=== PATIENT | male | born 1940 | race Caucasian/White ===

== ENCOUNTER 2020-04-20 09:16 | Inpatient (IN) ==
[2020-04-20 09:41] LABS: Basophils % 0.1 %; Eosinophils % 0.3 %; Hematocrit 33.9 % (37.5-50.1); Immature Granulocytes % 0.4 % (0-4); Lymphocytes % 14.8 %; Mean Corpuscular HGB Conc 32.4 g/dL (31.6-35.5); Mean Corpuscular Hemoglobin 31.5 pg (28.0-33.3); Mean Corpuscular Volume 97.1 fL (83.0-100.0); Mean Platelet Volume 10.8 fL (9.4-12.4); Monocytes # 0.6 K/mcL (0.0-1.3); Monocytes % 9.1 %; Platelet Count 227 K/mcL (140-400); Red Blood Count 3.49 M/mcL (4.19-5.50); Segmented Neutrophils % 75.3 %; White Blood Count 6.7 K/mcL (4.3-11.1)
[2020-04-20 09:56] LABS: Activated Partial Thrombo Time 32.5 Seconds (26.0-36.0); Alanine Aminotransferase 27 Units/L (7-52); Albumin/Globulin Ratio 1.4 (1.1-2.2); Alkaline Phosphatase 69 Units/L (34-104); Aspartate Amino Transferase 30 Units/L (13-39); BUN/Creatinine Ratio 22 (6-26); Bilirubin,Direct 0.2 mg/dL (0.0-0.2); Bilirubin,Indirect 0.6 mg/dL (0.0-1.0); Bilirubin,Total 0.8 mg/dL (0.3-1.0); Blood Urea Nitrogen 25 mg/dL (8-23); Calcium 9.1 mg/dL (8.6-10.3); Carbon Dioxide 23 mEq/L (23-29); Chloride 106 mEq/L (98-107); Globulin 2.9 g/dL (2.4-3.5); Glucose 128 mg/dL (70-105); INR 1.4; Osmolality,Calculated 294 (280-300); Potassium 4.2 mEq/L (3.5-5.1); Prothrombin Time 16.4 Seconds (9.4-12.1); Sodium 139 mEq/L (136-145); Total Protein 6.9 g/dL (6.4-8.9); eGFR For African Americans > 60 (> 60); eGFR For Non-African Americans > 60 (> 60)
[2020-04-20 10:06] LABS: Troponin I 0.05 ng/mL (< 0.04)
[2020-04-20] MEDS ORDERED: Furosemide 40 MG/4 ML VIAL IVP ONE (10:13)
[2020-04-20] MEDS ORDERED: Aspirin 325 MG TABLET PO ONE (10:13)
[2020-04-20] MEDS ORDERED: *HR* Labetalol 20 MG/4 ML SYRINGE IVP ONE (10:19)
[2020-04-20] MEDS ORDERED: Ondansetron 4 MG/2 ML VIAL IVP PRN (10:45)
[2020-04-20] MEDS ORDERED: Acetaminophen 325 MG TABLET PO PRN (10:45)
[2020-04-20] MEDS ORDERED: Naloxone 0.4 MG/ML INJ IVP PRN (10:45)
[2020-04-20] MEDS ORDERED: Nitroglycerin 0.4 MG TAB.SUBL SL PRN (10:48)
[2020-04-20] MEDS ORDERED: Perflutren Lipid Microsphere 1.3 ML in 0.9 % Sodium Chloride 8.7 ML IVP PRN (10:50)
[2020-04-20] MEDS ORDERED: Ipratropium/Albuterol Neb 3 ML IH SCH (12:00)
[2020-04-20] MEDS ORDERED: Ipratropium/Albuterol Neb 3 ML IH PRN (12:30)
[2020-04-20] MEDS: Furosemide 20 MG/2 ML VIAL IVP SCH (22:12)
[2020-04-21] MEDS: Melatonin 3 MG TABLET PO PRN ×2 (00:24→22:34)
[2020-04-21] MEDS: *HR* Enoxaparin 40 MG/0.4 ML SYRINGE SQ SCH (06:14)
[2020-04-21 06:39] LABS: Hematocrit 35.6 % (37.5-50.1); Hemoglobin 11.4 g/dL (12.9-16.9); Mean Corpuscular Hemoglobin 30.9 pg (28.0-33.3); Mean Corpuscular Volume 96.5 fL (83.0-100.0); Mean Platelet Volume 10.2 fL (9.4-12.4); Platelet Count 211 K/mcL (140-400); Red Blood Count 3.69 M/mcL (4.19-5.50); Red Cell Distribution Width 16.1 % (11.5-14.5); White Blood Count 6.5 K/mcL (4.3-11.1)
[2020-04-21 08:00] LABS: Magnesium 2.1 mg/dL (1.6-2.6); Potassium 4.3 mEq/L (3.5-5.1)
[2020-04-21] MEDS: Furosemide 20 MG/2 ML VIAL IVP SCH (08:49)
[2020-04-21] MEDS: Aspirin Enteric Coated 81 MG Tablet PO SCH (08:50)
[2020-04-22] MEDS: *HR* Enoxaparin 40 MG/0.4 ML SYRINGE SQ SCH (05:40)
[2020-04-22 06:53] LABS: Hematocrit 37.3 % (37.5-50.1); Hemoglobin 11.7 g/dL (12.9-16.9); Mean Corpuscular HGB Conc 31.4 g/dL (31.6-35.5); Mean Corpuscular Hemoglobin 31.3 pg (28.0-33.3); Mean Corpuscular Volume 99.7 fL (83.0-100.0); Mean Platelet Volume 11.7 fL (9.4-12.4); Platelet Count 212 K/mcL (140-400); Red Blood Count 3.74 M/mcL (4.19-5.50); Red Cell Distribution Width 16.9 % (11.5-14.5); White Blood Count 8.8 K/mcL (4.3-11.1)
[2020-04-22 07:16] LABS: Potassium 4.7 mEq/L (3.5-5.1)
[2020-04-22] MEDS ORDERED: Furosemide 20 MG/2 ML VIAL IVP SCH (09:00)
[2020-04-22] MEDS: lisinopriL 5 MG TABLET PO SCH (09:56)
[2020-04-22] MEDS: Spironolactone 25 MG TABLET PO SCH (09:56)
[2020-04-22] MEDS: Aspirin Enteric Coated 81 MG Tablet PO SCH (10:12)
[2020-04-22] MEDS: Melatonin 3 MG TABLET PO PRN (22:01)
[2020-04-23] MEDS: *HR* Enoxaparin 40 MG/0.4 ML SYRINGE SQ SCH (05:05)
[2020-04-23 07:31] LABS: Basophils % 0.1 %; Eosinophils % 0.2 %; Hematocrit 36.9 % (37.5-50.1); Hemoglobin 12.1 g/dL (12.9-16.9); Immature Granulocytes % 0.5 % (0-4); Mean Corpuscular HGB Conc 32.8 g/dL (31.6-35.5); Mean Corpuscular Hemoglobin 31.7 pg (28.0-33.3); Mean Corpuscular Volume 96.6 fL (83.0-100.0); Monocytes # 0.9 K/mcL (0.0-1.3); Monocytes % 9.5 %; Neutrophils # 7.6 K/mcL (1.6-8.9); Platelet Count 172 K/mcL (140-400); Red Blood Count 3.82 M/mcL (4.19-5.50); Red Cell Distribution Width 17.2 % (11.5-14.5); Segmented Neutrophils % 79.7 %; White Blood Count 9.6 K/mcL (4.3-11.1)
[2020-04-23 07:37] LABS: Calcium 8.7 mg/dL (8.6-10.3); Potassium 4.7 mEq/L (3.5-5.1)
[2020-04-23] MEDS: Spironolactone 25 MG TABLET PO SCH (09:23)
[2020-04-23] MEDS: Aspirin Enteric Coated 81 MG Tablet PO SCH (09:23)
[2020-04-23] MEDS: Furosemide 20 MG TABLET PO SCH (09:24)
[2020-04-23] MEDS: lisinopriL 5 MG TABLET PO SCH (09:24)
[2020-04-23] MEDS: Melatonin 3 MG TABLET PO PRN (21:09)
[2020-04-24] MEDS: *HR* Enoxaparin 40 MG/0.4 ML SYRINGE SQ SCH (06:08)
[2020-04-24] MEDS: lisinopriL 5 MG TABLET PO SCH (08:13)
[2020-04-24] MEDS: Aspirin Enteric Coated 81 MG Tablet PO SCH (08:13)
[2020-04-24] MEDS: Spironolactone 25 MG TABLET PO SCH (08:15)
[2020-04-24] MEDS: Furosemide 20 MG TABLET PO SCH (08:15)
[2020-04-24 10:53] VITALS: BP 122/67
== END 2020-04-24 11:00 | DRG 291 ==
LOC: EMEROOPIK 09:16 → INPPIK 09:16
PROVIDERS: ADMIT Family Medicine; ATTEND Family Medicine

== ENCOUNTER 2020-07-16 12:07 | Observation (INO) ==
[2020-07-16 12:58] LABS: Bilirubin,Urine Negative (Negative); Blood,Urine Moderate (Negative); Clarity,Urine Clear (Clear); Color,Urine Orange (Yellow); Glucose,Urine (UA) 100 mg/dL (Normal); Ketones,Urine Negative (Negative); Leukocyte Esterase,Urine Small (Negative); Nitrite,Urine Positive (Negative); Protein,Urine 100 mg/dL (Neg-Trace); Specific Gravity,Urine 1.025 (1.010-1.025); Urobilinogen,Urine Normal (Normal)
[2020-07-16 13:06] LABS: Bacteria,Urine Many per hpf (None-Few); WBC,Urine TNTC per hpf (0-3)
[2020-07-16 13:11] LABS: Basophils % 0.3 %; Eosinophils # 0.1 K/mcL (0.0-0.6); Eosinophils % 1.3 %; Hematocrit 37.6 % (37.5-50.1); Hemoglobin 12.1 g/dL (12.9-16.9); Immature Granulocytes % 0.5 % (0-4); Lymphocytes % 15.3 %; Mean Corpuscular HGB Conc 32.2 g/dL (31.6-35.5); Mean Corpuscular Hemoglobin 31.4 pg (28.0-33.3); Mean Corpuscular Volume 97.7 fL (83.0-100.0); Mean Platelet Volume 10.3 fL (9.4-12.4); Monocytes # 0.5 K/mcL (0.0-1.3); Monocytes % 7.3 %; Neutrophils # 4.7 K/mcL (1.6-8.9); Platelet Count 227 K/mcL (140-400); Red Blood Count 3.85 M/mcL (4.19-5.50); Red Cell Distribution Width 16.5 % (11.5-14.5); Segmented Neutrophils % 75.3 %; White Blood Count 6.3 K/mcL (4.3-11.1)
[2020-07-16 13:26] LABS: Activated Partial Thrombo Time 32.8 Seconds (26.0-36.0); INR 1.3; Prothrombin Time 14.9 Seconds (9.4-12.1)
[2020-07-16 13:29] LABS: Alanine Aminotransferase 7 Units/L (7-52); Albumin 3.9 g/dL (3.5-5.7); Albumin/Globulin Ratio 1.3 (1.1-2.2); Alkaline Phosphatase 76 Units/L (34-104); Aspartate Amino Transferase 11 Units/L (13-39); BUN/Creatinine Ratio 18 (6-26); Bilirubin,Direct 0.2 mg/dL (0.0-0.2); Bilirubin,Indirect 0.6 mg/dL (0.0-1.0); Bilirubin,Total 0.8 mg/dL (0.3-1.0); Blood Urea Nitrogen 20 mg/dL (8-23); Calcium 9.2 mg/dL (8.6-10.3); Carbon Dioxide 24 mEq/L (23-29); Chloride 106 mEq/L (98-107); Glucose 124 mg/dL (70-105); Osmolality,Calculated 292 (280-300); Potassium 4.5 mEq/L (3.5-5.1); Sodium 139 mEq/L (136-145); Total Protein 6.9 g/dL (6.4-8.9); eGFR For African Americans > 60 (> 60); eGFR For Non-African Americans > 60 (> 60)
[2020-07-16 13:34] LABS: Troponin I 0.05 ng/mL (< 0.04)
[2020-07-16] MEDS ORDERED: Furosemide 40 MG/4 ML VIAL IVP ONE (13:59)
[2020-07-16] MEDS ORDERED: Acetaminophen 325 MG TABLET PO PRN (14:25)
[2020-07-16] MEDS ORDERED: Naloxone 0.4 MG/ML INJ IVP PRN (14:25)
[2020-07-16] MEDS ORDERED: Perflutren Lipid Microsphere 1.3 ML in 0.9 % Sodium Chloride 8.7 ML IVP PRN (15:08)
[2020-07-16] MEDS: lisinopriL 5 MG TABLET PO SCH (16:12)
[2020-07-16] MEDS: Furosemide 20 MG/2 ML VIAL IVP SCH ×2 (16:12→21:22)
[2020-07-17 02:38] LABS: Hematocrit 37.8 % (37.5-50.1); Hemoglobin 12.3 g/dL (12.9-16.9); Mean Corpuscular HGB Conc 32.5 g/dL (31.6-35.5); Mean Corpuscular Hemoglobin 31.5 pg (28.0-33.3); Mean Corpuscular Volume 96.7 fL (83.0-100.0); Mean Platelet Volume 10.7 fL (9.4-12.4); Platelet Count 215 K/mcL (140-400); Red Blood Count 3.91 M/mcL (4.19-5.50); Red Cell Distribution Width 16.3 % (11.5-14.5)
[2020-07-17 03:43] LABS: BUN/Creatinine Ratio 18 (6-26); Blood Urea Nitrogen 23 mg/dL (8-23); Calcium 9.1 mg/dL (8.6-10.3); Carbon Dioxide 28 mEq/L (23-29); Chloride 101 mEq/L (98-107); Chol/HDL Ratio 4.2 (0-4.9); Cholesterol 156 mg/dL (< 200); Glucose 107 mg/dL (70-105); HDL Cholesterol 37 mg/dL (40-59); LDL Cholesterol,Calculated 105 mg/dL (< 100); Osmolality,Calculated 292 (280-300); Potassium 3.8 mEq/L (3.5-5.1); Sodium 139 mEq/L (136-145); Triglycerides 68 mg/dL (< 150); eGFR For African Americans > 60 (> 60); eGFR For Non-African Americans 54 (> 60)
[2020-07-17] MEDS: Furosemide 20 MG/2 ML VIAL IVP SCH (06:10)
[2020-07-17 06:28] VITALS: BP 121/76
[2020-07-17] MEDS: lisinopriL 5 MG TABLET PO SCH (08:47)
[2020-07-17] MEDS ORDERED: Aspirin Enteric Coated 81 MG Tablet PO SCH (09:00)
[2020-07-17] MEDS ORDERED: Spironolactone 12.5 MG TABLET PO SCH (09:00)
== END 2020-07-17 11:58 | disposition home or self-care (01) ==
LOC: INPPIK 12:07 → EMEROOPIK 12:07 → INPPIK 14:57
PROVIDERS: ADMIT Family Medicine; ATTEND Family Medicine